=== PATIENT | male | born 1985 | race Caucasian/White ===

== ENCOUNTER 2017-02-13 19:12 | Emergency (ER) | payer BC, OTHER ==
[~2017-02-13] VITALS: Ht 175.3 cm; Wt 95.5 kg
[2017-02-13 19:34] VITALS: Ht 175.3 cm; Wt 95.5 kg
[2017-02-13] MEDS ORDERED: HYDROmorphONE 1 MG/ML SYG IV STA (19:55)
[2017-02-13] MEDS ORDERED: ONDANSETRON 4 MG INJ IV STA (19:55)
[2017-02-13] MEDS ORDERED: PROPOFOL 20 ML ONE (20:33)
[2017-02-13 20:40] VITALS: BP 156/91; PULSE 95; RESP 20; TEMP 98.9
--- NOTE | 2017-02-13 20:48 | ERD ---
ER Documentation Chief Complaint Date/Time DATE: 02/13/17 TIME: 20:45 Chief Complaint biba for left shoulder pain after lifting boxes, hx dislocation x 5 HPI 32-year-old male history of anxiety, depression and recurrent left shoulder dislocations presents to the ED via rescue ambulance complaining of acute pain and deformity to his left shoulder while lifting boxes this evening. Denies weakness or numbness. Patient also complaining of a two-week history of left ankle pain since injury sustained when he jumped off a roof. Denies knee or hip pain. No back pain. ROS All systems reviewed and are negative except as per history of present illness. Medications Home Meds Active Scripts Ibuprofen* (Motrin*) 600 Mg Tab, 600 MG PO Q6H Y for PAIN AND OR ELEVATED TEMP, #16 TAB Prov:ELY ANNA MD 02/13/17 Allergies Allergies: Coded Allergies: No Known Allergy (Unverified , 02/13/17) PMhx/Soc Reviewed in chart. As per HPI. Medical and Surgical Hx: pt denies Surgical Hx History of Surgery: No Anesthesia Reaction: No Hx Neurological Disorder: No Hx Respiratory Disorders: No Hx Cardiac Disorders: No Hx Psychiatric Problems: No Hx Miscellaneous Medical Probl: Yes (anxiety, Depression, recurrent left shoulder dislocation) Hx Alcohol Use: Yes Hx Substance Use: No Smoking Status: Former smoker FmHx Not relevant to presenting complaint. Physical Exam Vitals Vital Signs Date Time Temp Pulse Resp B/P Pulse Ox O2 Delivery O2 Flow Rate FiO2 02/13/17 20:40 98.9 95 20 156/91 98 Room Air 02/13/17 20:38 98.9 92 20 150/82 98 Room Air 02/13/17 20:35 98.9 89 20 135/85 98 Room Air 02/13/17 20:23 98.9 113 24 134/81 98 Room Air 02/13/17 19:34 98.9 119 24 140/89 98 Physical Exam Const: Alert, severe distress due to pain Head: Atraumatic Eyes: Normal Conjunctiva ENT: Normal External Ears, Nose and Mouth. Neck: Full range of motion.Nontender Resp: Clear to auscultation bilaterally Cardio: Regular rate and rhythm, no murmurs Abd: Soft, non tender, non distended. Normal bowel sounds Skin: No petechiae or rashes Back: No midline or flank tenderness Ext: Left upper extremity: Left shoulder: Humeral head is palpated anterior to the glenoid. Diffuse tenderness. Sensation to the anterior axillary nerve is intact. Distal pulses 4+. Sensation and motor intact.Left ankle: Mild lateral tenderness with soft tissue swelling. No medial swelling or tenderness. No deformity. Normal range of motion. Distal neurovascular intact. No foot tenderness. Neur: Awake and alert Psych: Anxious. Results 24 hrs Current Medications Medications (Trade) Dose Ordered Sig/Aparna Route PRN Reason Start Time Stop Time Status Last Admin Dose Admin Hydromorphone HCl (Dilaudid) 1 mg ONCE STAT IV 02/13/17 19:55 02/13/17 19:56 DC 02/13/17 20:00 Ondansetron HCl 4 mg 4 mg ONCE STAT IV 02/13/17 19:55 02/13/17 19:56 DC 02/13/17 20:01 Propofol (Diprivan) 20 ml @ ud STK-MED ONCE .ROUTE 02/13/17 20:33 02/13/17 20:34 DC Propofol (Diprivan) 200 mg ONCE ONCE IV 02/13/17 21:30 02/13/17 21:31 DC 02/13/17 22:01 PROCEDURE: XR Left Ankle. CLINICAL INDICATION: Injury. Pain. TECHNIQUE: Three views of the left ankle were performed. COMPARISON: None. FINDINGS: There are no fractures. Joint relationships are maintained. Ankle mortise is intact. Bone mineralization is within normal limits. Soft tissues are unremarkable. IMPRESSION: 1. No acute abnormality. RPTAT: HMVK .Ward Joyce MD, MD Date Time Electronically viewed and signed by .Ward Joyce MD, MD on 02/13/2017 22:25 .K/ Procedures/MDM DOCUMENTS REVIEWED: ED nurse, No prior records PROCEDURES: Procedural Sedation: Pre-assessment performed. See preceding complete history and physical for details. Time out performed. See sedation documentation for details. Risk, benefits and alternatives were discussed with the patient. Medication(s): Propofol, 50 mg IV 4. Complications: No hypoxic or apneic events Recovered without incident. A minimum of 16 minutes of face to face time was performed including preparation, sedation and recovery time. X-ray Shoulder 2V Interpreted by me: Bones: No fracture Joints: Anterior dislocation of the glenohumeral joint Foreign body: None Shoulder Reduction by me: Location: Left glenohumeral Technique: Traction-countertraction Results: Nondenominational of normal anatomic positioning Compl: Neurovascularly intact post procedure. Sling Assessment: Neurovascularly intact post sling placement with good fit. Post-reduction X-ray Shoulder 3V Interpreted by me: Bones: No fracture Joints: Humeral head in good position in the glenoid. Normal anatomic positioning restored Foreign body: None MEDICAL DECISION MAKIN-year-old male history of anxiety, depression and recurrent left shoulder dislocations presents to the ED via rescue ambulance complaining of acute pain and deformity to his left shoulder while lifting boxes this evening. X-ray confirms a left anterior glenohumeral dislocation. No fracture. Dislocation reduced as described above without complication. Shoulder immobilizer placed. Left ankle sprain without radiographic evidence of fracture.Stable for discharge precaution instructions and outpatient follow- up as counseled. Counseled patient and family regarding diagnostic workup, diagnosis and need for followup. Understands to return to ED if symptoms recur, worsen or any other concerns. Departure Diagnosis: Primary Impression: Shoulder pain Chronicity: acute Laterality: left Qualified Code: M25.512 - Acute pain of left shoulder Additional Impressions: Closed dislocation of left glenohumeral joint Encounter type: initial encounter Qualified Code: S43.085A - Closed dislocation of left glenohumeral joint, initial encounter Left ankle sprain Encounter type: initial encounter Involved ligament of ankle: unspecified ligament Qualified Code: S93.402A - Sprain of left ankle, unspecified ligament , initial encounter Condition: Stable (Improved) ELY ANNA MD Feb 13, 2017 20:48
--- NOTE | 2017-02-13 21:18 | RADRPT ---
PROCEDURE: XR Shoulder. CLINICAL INDICATION: 32 years of age, male. Left shoulder pain. TECHNIQUE: Two views of the left shoulder. COMPARISON: None available. FINDINGS: Frontal and transscapular Y views of the left shoulder demonstrate anterior inferior dislocation of the humeral head relative to the glenoid. No acute fractures are identified. Acromioclavicular joint appears normal. Coracoclavicular interval appears normal. Hazy increased opacity in the visualized lung may be due to atelectasis. IMPRESSION: Anterior inferior dislocation of the left shoulder. RPTAT: HCTS Physician Luis A Date Time Electronically viewed and signed by Physician Luis A on 02/13/2017 21:17 CS/
[2017-02-13] MEDS ORDERED: PROPOFOL 200 MG INJ IV ONE (21:30)
[2017-02-13] MEDS ORDERED: IBUP-1542 PO (21:40)
--- NOTE | 2017-02-13 22:15 | RADRPT ---
PROCEDURE: XR Left Shoulder CLINICAL INDICATION: Post reduction TECHNIQUE: An AP and a Y-view were submitted. COMPARISON: Study done earlier on the same date FINDINGS: Osseous structures: appear well mineralized and intact with no fracture or destructive process iden tified. A subtle Hill-Sachs deformity could be overlooked in this externally rotated view. Joint spaces: The glenohumeral dislocation is been satisfactory reduced. The left AC joint appears unremarkable. Soft tissues: appear unremarkable. IMPRESSION: 1. Interval reduction of the left glenohumeral dislocation. 2. No discrete fracture is identified. Physician Young Date Time Electronically viewed and signed by Physician Young on 02/13/2017 22:14 /
--- NOTE | 2017-02-13 22:26 | RADRPT ---
PROCEDURE: XR Left Ankle. CLINICAL INDICATION: Injury. Pain. TECHNIQUE: Three views of the left ankle were performed. COMPARISON: None. FINDINGS: There are no fractures. Joint relationships are maintained. Ankle mortise is intact. Bone minerali zation is within normal limits. Soft tissues are unremarkable. IMPRESSION: 1. No acute abnormality. RPTAT: HMVK .Ward Joyce MD, Date Time Electronically viewed and signed by .Ward Joyce MD, on 02/13/2017 22:25 .K/
== END 2017-02-13 23:02 | disposition home or self-care (01) ==
LOC: FTE 19:12 → E/R 23:02
DX: S43.085A Other dislocation of left shoulder joint, initial encounter (principal); S93.402A Sprain of unspecified ligament of left ankle, initial encounter; X50.0XXA Overexertion from strenuous movement or load, initial encounter; Y92.9 Unspecified place or not applicable; Z87.891 Personal history of nicotine dependence
CPT/HCPCS: 23650; 73030; 73610; 94770; 96374; 96375; J1170; J2405; Z7502; Z7610

== ENCOUNTER 2017-11-30 08:17 | Day surgery (SDC) | END 2017-11-30 16:14 | disposition home or self-care (01) ==